=== PATIENT | male | born 1940 | race Caucasian/White ===

== ENCOUNTER → 2019-06-13 10:29 | Outpatient (BNVA) | payer MEDICARE, SELFPAY | PROVIDERS: Family Provider Family Medicine; PCP Family Medicine; Visit Provider Urology | DX: N40.0 Benign prostatic hyperplasia without lower urinary tract symptoms (principal); R35.1 Nocturia | CPT/HCPCS: 81001 ==

== ENCOUNTER 2019-08-25 09:25 | Outpatient (CLI) | payer MEDICARE, SELFPAY ==
--- NOTE | 2019-08-25 09:35 | CT_ITS ---
WS: [id number] CT CHEST TECHNIQUE: Noncontrast CT of the chest with coronal and sagittal reformatted images. CLINICAL INFORMATION: LUNG NODULE COMPARISON: Chest radiograph 02/28/2019 and 06/27/2016 DLP: 1040.[address] scans at [facility] use at least one of these dose optimization techniques: automat ed exposure control; mA and/or kV adjustment per patient size (includes targeted exams where dose is matched to clinical indication); or iterative reconstruction. FINDINGS: Moderate chronic emphysematous changes. No acute pulmonary infiltrates. No consolidation or pleural f luid. Noncontrast subpleural pulmonary nodule superior segment left lower lobe measuring 4 mm. Chroni c appearing fibrosis in the right lower lobe laterally. No other suspicious pulmonary opacities. Mult inodular thyroid with largest nodules in the right lobe measuring 16 mm. Vascular calcification including coronary. Mild aortic calcification. No mediastinal or hilar lymphad enopathy. No axillary lymphadenopathy. Adrenal glands are normal. Normal GE junction. CT/CT chest wo con [id number] IMPRESSION: 1. Noncalcified pulmonary nodule superior segment left lower lobe measuring 4 mm. Recommend 6 month follow-up. 2. No mediastinal or hilar lymphadenopathy. 3. Moderate chronic emphysematous changes. 4. Multinodular thyroid with the largest nodule in the right thyroid gland abdoulaye suring 16 mm. This can be further evaluated with ultrasound
== END 2019-08-25 09:26 | disposition home or self-care (01) ==
LOC: RADWPI 09:27
PROVIDERS: Family Provider Family Medicine; PCP Family Medicine; Visit Provider Family Medicine
DX: R91.8 Other nonspecific abnormal finding of lung field (principal); E04.2 Nontoxic multinodular goiter
CPT/HCPCS: 71250

== ENCOUNTER 2019-09-01 08:36 | Outpatient (CLI) | payer MEDICARE, SELFPAY ==
--- NOTE | 2019-09-01 08:46 | US_ITS ---
WS: [id number] ULTRASOUND THYROID TECHNIQUE: Ultrasound of the thyroid. CLINICAL INFORMATION: THYROID NODULE COMPARISON: None. FINDINGS: Thyroid: Right and left thyroid lobes are normal in size with diffuse heterogeneous echotexture. Mult iple cystic and solid nodules in both thyroid lobes and isthmus described below. Right thyroid lobe: 6.1 cm x 2.4 cm x 2.7 cm Left thyroid lobe: 4.7 cm x 2.4 cm x 2.4 cm. Isthmus: 0.5 mm. Cervical lymphadenopathy: None. US/US thyroid [id number] IMPRESSION: 1. Diffuse heterogeneous thyroid echotexture. 2. Multiple cystic and solid nodules in both thyroid lobes and isthmus 3. Largest solid nodule on the right measuring 2.2 x 1.0 x 2.1 cm with cystic change. 4. Solid hypoechoic nodule right inferior thyroid measuring 1.4 1.2 x 1.4 CM. 5. Dominant left-sided hypoechoic solid nodule measuring 1.9 x 0.9 x 1.2 CCM. 6. Recommend 12 month follow-up and correlation with thyroid function studies.
== END 2019-09-01 08:37 | disposition home or self-care (01) ==
PROVIDERS: PCP Family Medicine; Visit Provider Family Medicine
DX: E04.1 Nontoxic single thyroid nodule (principal)
CPT/HCPCS: 76536

== ENCOUNTER → 2020-07-10 08:47 | Outpatient (BNVA) | payer MEDICARE, SELFPAY | PROVIDERS: PCP Family Medicine; Visit Provider Urology | DX: N40.1 Benign prostatic hyperplasia with lower urinary tract symptoms (principal); R35.1 Nocturia; N39.44 Nocturnal enuresis | CPT/HCPCS: 81003 ==

== ENCOUNTER 2021-02-03 09:06 | Outpatient (CLI) | payer MEDICARE, SELFPAY ==
--- NOTE | 2021-02-03 10:01 | MR_ITS ---
WS: [id number] MRI RIGHT HIP NONCONTRAST TECHNIQUE: Axial T1, axial T2 fat sat, coronal T1, coronal STIR, sagittal T2 fat sat, sagittal T1, an d sagittal T2 fat sat, of both hips. CLINICAL INFORMATION: POSTERIOR PAIN OF RIGHT HIP COMPARISON: None. FINDINGS: Normal bone marrow signal in both hips. No acute fractures. No significant joint effusion. Normal bon e marrow signal in the acetabulum bilaterally. Normal bone marrow signal in the sacrum and lower lumb ar spine. Moderate degenerative narrowing both hips. Proximal femoral shafts are normal in appearance. No iliac or pelvic lymphadenopathy. Benign sclerotic lesion inferior left pubic ramus is unchanged. MR/MR hip RT wo con* [id number] IMPRESSION: 1. Moderate degenerative arthritis both hips with joint space narrowing. 2. No abnormal bone marrow signal in the bilateral femoral heads or acetabulum . 3. Normal visualized sacrum. 4. No other significant findings.
[2021-02-03 11:14] LABS: Blood Urea Nitrogen 26 mg/dL (8-23)
== END 2021-02-03 09:07 | disposition home or self-care (01) ==
PROVIDERS: PCP Family Medicine; Visit Provider Nurse Practitioner Adult Health
DX: M16.0 Bilateral primary osteoarthritis of hip (principal)
CPT/HCPCS: 73721; 82565; 84520

== ENCOUNTER 2021-04-29 10:48 | Outpatient (CLI) | payer MEDICARE, SELFPAY ==
[2021-04-29 11:00] VITALS: BP 163/87; PULSE 74; RESP 17; TEMP 37.5; O2SAT 93; BMI 28.4
[2021-04-29 11:49] VITALS: BP 129/75; PULSE 63; RESP 17; TEMP 36.5; O2SAT 94
[2021-04-29 12:49] VITALS: BP 125/78; PULSE 57; RESP 18; TEMP 36.8; O2SAT 96
== END 2021-04-29 12:49 | disposition home or self-care (01) ==
LOC: OPS 10:52
PROVIDERS: PCP Family Medicine; Visit Provider Nurse Practitioner Family
DX: U07.1 COVID-19 (principal)
CPT/HCPCS: 96365

== ENCOUNTER 2021-05-03 08:43 | Emergency (ER) | payer MEDICARE, SELFPAY ==
[2021-05-03 08:57] VITALS: BP 180/79; PULSE 86; RESP 14; TEMP 37; O2SAT 95; BMI 28.4
--- NOTE | 2021-05-03 09:29 | W.ED.MALEGU ---
Documented by User: B[place] 05/03/21 10:33 HPI - Male Genitourinary General: Chief complaint: Urogenital-Male Stated complaint: trouble urinating Time Seen by Provider: 05/03/21 09:20 History of Present Illness: HPI Narrative: Patient has had difficulty urinating since yesterday. Just dribbling out some. Patient does have a history of prostatic hypertrophy. Patient recently diagnosed with COVID on April 24. Patient complains about fullness and pressure and pain suprapubic area MD Complaint: dysuria Onset (ago): hour(s) Duration: constant and progressively worsening Severity: moderate Severity scale (1-10): 5 Quality: aching Relieving factors: none Exacerbating factors: movement Context: other (COVID positive) Associated symptoms: Deny nausea or vomiting Review of Systems Const: Denies: fever(s), chills or body aches Eyes: Denies: change in vision or blurry vision ENMT: Denies: throat pain or nasal congestion Card: Denies: chest pain or dyspnea on exertion Resp: Denies: dyspnea, productive cough or non-productive cough GI: Denies: abdominal pain, nausea or vomiting : Reports: difficulty urinating Musc: Denies: extremity pain Skin/Breast: Denies: rash Neuro: Denies: headache(s) Psych: Denies: anxiety or depression John/Lymph: Denies: easy bruising PFSH ED PFSH: Medical History BPH NOS w/o ur obs/LUTS Nocturia Nocturnal enuresis Occurs with heavy sleeping on large volume of intake. Rare Family History Father , 68 CAD (coronary artery disease) Mother , 92 No problems noted. Social History Alcohol intake: never Adopted: No Caregiver/support person: No Lives independently: No Household members: spouse Marital status: Current occupational status: retired History of recent travel: No Current gender identity: Male Physical Exam Const: COMMON NORMALS: no acute distress, average body habitus and patient oriented x3 HENMT: COMMON NORMALS: normocephalic HEAD & SCALP: normal to inspection and normocephalic FACE & SINUS: normal facial exam Eye: COMMON NORMALS: conjunctivae normal GENERAL EYE: appearance normal, both eyes and all related structures CONJUNCTIVA: Yes conjunctivae normal Neck/C-Spine: COMMON NORMALS: no JVD Chest: COMMONS NORMALS: normal inspection of the chest Resp: COMMON NORMALS: normal respiratory effort Cardio: COMMON NORMALS: no JVD and regular rate RATE: regular rate GI: INSPECTION: Yes normal to inspection OTHER: Tender suprapubic area Extremity: COMMON NORMALS: normal to inspection and full ROM Neuro: COMMON NORMALS: patient oriented x3 Course Vital Signs: Vital signs: Vital Signs Temperature 98.6 F 05/03/21 08:57 Pulse Rate 62 05/03/21 10:45 Respiratory Rate 19 H 05/03/21 10:45 Blood Pressure 176/76 05/03/21 10:45 Pulse Oximetry 96 05/03/21 10:45 MDM - Male MDM Narrative Medical decision making narrative: Pleasant COVID positive patient that coming with acute urinary retention since last night. UA is positive for WBCs TNTC , hematuria and bacteria. Fernandez was placed and got thousand mils of cloudy yellow urine out. Fernandez left in place. Patient encouraged follow-up primary care provider between Wednesday and Wednesday. Take antibiotics as prescribed. Lab Data Labs: Lab Results 05/03/21 09:30 Urine Color Straw (Yellow) Urine Appearance Cloudy (CLEAR) Urine pH 5 (5-7) Ur Specific [place] 1.010 (1.005-1.030) Urine Protein Neg (Negative) Urine Glucose (UA) Norm (Normal) Urine Ketones Negative (Negative) Urine Blood 3+ H (Negative) Urine Nitrate Negative (Negative) Urine Bilirubin Neg (Negative) Urine Urobilinogen Norm mg/dL mg/dL (Negative) Ur Leukocyte Esterase 2+ H (Negative) Urine RBC 5-10 /hpf H /hpf (0-2) Urine WBC Too numerous to cnt /hpf H /hpf (0-5) Ur Squamous Epith Cells None /hpf /hpf (0-5) Amorphous Sediment Not Reportable Urine Bacteria 1+ /hpf H /hpf (NONE) Discharge Plan Discharge Patient Disposition: Home Clinical Impression: Acute lower urinary tract infection, Acute urinary retention Condition: Stable Prescriptions: New fosfomycin tromethamine 3 gram packet 1 packet PO ONCE Qty: 1 0RF No Action vitamin B complex [B Complex-Vitamin B12] Tablet 1 tab PO DAILY 0RF cholecalciferol (vitamin D3) 125 mcg (5,000 unit) capsule 125 mcg PO DAILY 0RF lovastatin 40 mg tablet 40 mg PO DAILY 0RF ascorbic acid (vitamin C) 500 mg capsule PO 0RF ofloxacin 0.3 % drops 1 drp ophthalmic (eye) QID 0RF Cortisporin-TC 3.3-3-10-0.5 mg/mL drops,suspension 4 drp otic (ear) TID 7 Days Qty: 10 0RF tamsulosin 0.4 mg capsule 0.4 mg PO DAILY Qty: 90 3RF Discharge Orders: Discharge ED (Routine); Ordered 05/03/21 Ordered By: Sawyer Buenrostro Referrals: Zachery Lopez MD [Primary Care Provider] - Discharge Diet: Usual diet Discharge Activity: Increase activity as tolerated Patient Instructions: Urinary Retention in Men (ED), Urinary Tract Infection in Men (DC), Fernandez Catheter Placement and Care (ED) Activity Restrictions/Additional Instructions: Follow-up with medical provider as directed. Take medications as prescribed. Return to the ER or your medical provider if condition worsens. Please read and understand discharge instructions. If any questions ask please. Make sure that you stay away from any cough and cold medicines. Take the antibiotic as prescribed should be 1 dose 1 day antibiotic. Leave Fernandez until seen by primary care provider and I suggest this before Wednesday. Also double your Flomax daily. To 1 tablet twice a day. Coding Level of Care Code ED Journalism Internship for Chg Fwd Exam Comprehensive Documented by User: Ruben Manning MD 05/07/21 22:30 HPI - Male Genitourinary General: Chief complaint: Urogenital-Male Stated complaint: trouble urinating Time Seen by Provider: 05/03/21 09:20 PFS ED PFSH: Medical History BPH NOS w/o ur obs/LUTS Nocturia Nocturnal enuresis Occurs with heavy sleeping on large volume of intake. Rare Family History Father , 68 CAD (coronary artery disease) Mother , 92 No problems noted. Social History Alcohol intake: never Adopted: No Caregiver/support person: No Lives independently: No Household members: spouse Marital status: Current occupational status: retired History of recent travel: No Current gender identity: Male Course Vital Signs: Vital signs: Vital Signs Temperature 98.6 F 05/03/21 08:57 Pulse Rate 62 05/03/21 10:45 Respiratory Rate 19 H 05/03/21 10:45 Blood Pressure 176/76 05/03/21 10:45 Pulse Oximetry 96 05/03/21 10:45 MDM - Male MDM Narrative Medical decision making narrative: I discussed this case with Sawyer Buenrostro NP. I reviewed documentation and laboratory studies. Potentially due to system error or recent update with failed integration this note appears blank however I have reviewed the recent note separately within the system as written by Sawyer Buenrostro NP. Ruben Manning MD Emergency Medicine Lab Data Labs: Lab Results 05/03/21 09:30 Urine Color Straw (Yellow) Urine Appearance Cloudy (CLEAR) Urine pH 5 (5-7) Ur Specific [place] 1.010 (1.005-1.030) Urine Protein Neg (Negative) Urine Glucose (UA) Norm (Normal) Urine Ketones Negative (Negative) Urine Blood 3+ H (Negative) Urine Nitrate Negative (Negative) Urine Bilirubin Neg (Negative) Urine Urobilinogen Norm mg/dL mg/dL (Negative) Ur Leukocyte Esterase 2+ H (Negative) Urine RBC 5-10 /hpf H /hpf (0-2) Urine WBC Too numerous to cnt /hpf H /hpf (0-5) Ur Squamous Epith Cells None /hpf /hpf (0-5) Amorphous Sediment Not Reportable Urine Bacteria 1+ /hpf H /hpf (NONE) Discharge Plan Discharge Patient Disposition: Home Clinical Impression: Acute lower urinary tract infection, Acute urinary retention Condition: Stable Prescriptions: New fosfomycin tromethamine 3 gram packet 1 packet PO ONCE Qty: 1 0RF No Action vitamin B complex [B Complex-Vitamin B12] Tablet 1 tab PO DAILY 0RF cholecalciferol (vitamin D3) 125 mcg (5,000 unit) capsule 125 mcg PO DAILY 0RF lovastatin 40 mg tablet 40 mg PO DAILY 0RF ascorbic acid (vitamin C) 500 mg capsule PO 0RF ofloxacin 0.3 % drops 1 drp ophthalmic (eye) QID 0RF Cortisporin-TC 3.3-3-10-0.5 mg/mL drops,suspension 4 drp otic (ear) TID 7 Days Qty: 10 0RF tamsulosin 0.4 mg capsule 0.4 mg PO DAILY Qty: 90 3RF Discharge Orders: Discharge ED (Routine); Ordered 05/03/21 Ordered By: Sawyer Buenrostro Referrals: Zachery Lopez MD [Primary Care Provider] - Discharge Diet: Usual diet Discharge Activity: Increase activity as tolerated Patient Instructions: Urinary Retention in Men (ED), Urinary Tract Infection in Men (DC), Fernandez Catheter Placement and Care (ED) Activity Restrictions/Additional Instructions: Follow-up with medical provider as directed. Take medications as prescribed. Return to the ER or your medical provider if condition worsens. Please read and understand discharge instructions. If any questions ask please. Make sure that you stay away from any cough and cold medicines. Take the antibiotic as prescribed should be 1 dose 1 day antibiotic. Leave Fernandez until seen by primary care provider and I suggest this before Wednesday. Also double your Flomax daily. To 1 tablet twice a day. Coding Level of Care Code ED Journalism Internship for Andre Fwdustin Exam Comprehensive
[2021-05-03 09:52] LABS: Add Urine Microscopic? YES; Bacteria Urine 1+ /hpf; Bilirubin Urine Neg (Negative); Blood Urine 3+ (Negative); Glucose Urine UA Norm (Normal); Ketones Urine Negative (Negative); Leukocyte Esterase Urine 2+ (Negative); Nitrate Urine Negative (Negative); Protein Urine Neg (Negative); Urine Appearance Cloudy (CLEAR); Urine Color Straw (Yellow); Urobilinogen Urine Norm (Negative); WBC Urine TOO NUMEROUS TO CNT /hpf (0-5); pH Urine 5 (5-7)
[2021-05-03 09:53] LABS: Add Urine Culture? Yes
[2021-05-03] MEDS: cephALEXin 500 mg Capsule PO (10:44)
[2021-05-03 10:45] VITALS: BP 176/76; PULSE 62; RESP 19; O2SAT 96
== END 2021-05-03 10:48 | disposition home or self-care (01) ==
PROVIDERS: Emergency Provider Nurse Practitioner Family; PCP Family Medicine
DX: N39.0 Urinary tract infection, site not specified (principal); R33.9 Retention of urine, unspecified
CPT/HCPCS: 51702; 81001; 87077; 87086; 87186; 99283

== ENCOUNTER → 2021-07-10 08:32 | Outpatient (BNVA) | payer MEDICARE, SELFPAY | PROVIDERS: PCP Family Medicine; Visit Provider Urology | DX: N40.0 Benign prostatic hyperplasia without lower urinary tract symptoms (principal) | CPT/HCPCS: 81003 ==

== ENCOUNTER → 2021-09-02 09:00 | Outpatient (BNVA) | payer MEDICARE, SELFPAY | PROVIDERS: PCP Family Medicine; Visit Provider Family Medicine | DX: E04.1 Nontoxic single thyroid nodule (principal); I48.91 Unspecified atrial fibrillation; G47.33 Obstructive sleep apnea (adult) (pediatric); E78.5 Hyperlipidemia, unspecified | CPT/HCPCS: 80053; 80061; 84443; 85025 ==

== ENCOUNTER → 2021-09-04 07:42 | Outpatient (BNVA) | payer MEDICARE, SELFPAY | PROVIDERS: PCP Family Medicine; Visit Provider Family Medicine | DX: E04.1 Nontoxic single thyroid nodule (principal); I48.91 Unspecified atrial fibrillation; G47.33 Obstructive sleep apnea (adult) (pediatric); E78.5 Hyperlipidemia, unspecified | CPT/HCPCS: 80053; 80061; 84443; 85025 ==

== ENCOUNTER → 2022-02-26 07:44 | Outpatient (BNVA) | payer MEDICARE, SELFPAY | PROVIDERS: PCP Family Medicine; Visit Provider Family Medicine | DX: E04.1 Nontoxic single thyroid nodule (principal); E78.5 Hyperlipidemia, unspecified; G47.33 Obstructive sleep apnea (adult) (pediatric); I48.91 Unspecified atrial fibrillation; Z99.89 Dependence on other enabling machines and devices; N40.0 Benign prostatic hyperplasia without lower urinary tract symptoms; R35.1 Nocturia | CPT/HCPCS: 80053; 80061; 84153 ==

== ENCOUNTER → 2022-03-26 08:29 | Outpatient (BNVA) | payer MEDICARE, SELFPAY | PROVIDERS: PCP Family Medicine; Visit Provider Clinical Nurse Specialist Adult Health | DX: B34.9 Viral infection, unspecified (principal); J10.1 Influenza due to other identified influenza virus with other respiratory manifestations | CPT/HCPCS: 87400; 87426 ==

== ENCOUNTER → 2022-07-08 14:00 | Outpatient (BNVA) | payer MEDICARE, SELFPAY | PROVIDERS: PCP Family Medicine; Visit Provider Urology | DX: N40.0 Benign prostatic hyperplasia without lower urinary tract symptoms (principal); R35.1 Nocturia; Z12.5 Encounter for screening for malignant neoplasm of prostate | CPT/HCPCS: 51741; 51798; 81003; 99213 ==

== ENCOUNTER → 2023-05-24 09:25 | Outpatient (BNVA) | payer MEDICARE, SELFPAY | PROVIDERS: PCP Family Medicine; Visit Provider Specialist | DX: M25.552 Pain in left hip (principal); M16.0 Bilateral primary osteoarthritis of hip | CPT/HCPCS: 73502; 99204 ==

== ENCOUNTER 2023-06-07 07:13 | Outpatient (CLI) | payer MEDICARE, SELFPAY ==
--- NOTE | 2023-06-07 08:00 | NMR_ITS ---
PROCEDURE INFORMATION: Exam: LA Bone and/or Joint, 3 Phase Exam date and time: 06/07/2023 8:00 AM Age: 82 years old Clinical indication: Bone pain; Prior surgery; Surgery date: 6+ months; Patient HX: Left hip pain history of left knee replacement, sclerotic lesion in the left ischial tuberosity TECHNIQUE: Imaging protocol: Nuclear 3 phase bone scan was obtained. Views: Frontal and Radiopharmaceutical: 24.4 mCi Tc99m HDP @ 0730. Time of imaging post radiopharmaceutical administration: Posterior. Blood flow, blood pool, and static images were obtained. COMPARISON: Routine images of the left hip from 05/14/2023. FINDINGS: Bones/joints: The bone scan shows normal distribution of radiopharmaceutical throughout the visualized osseous structures. The heterogeneous expansile lesion in the left inferior pubic bone shows no increased activity. Blood flow, blood pool, and static images are are essentially normal. Degenerative changes of the left hip yield increased uptake at the weight-bearing aspect of the acetabulum and within the adjacent femur. Typical defect from left knee replacement. Soft tissues: Unremarkable. Kidneys: Two kidneys are present and there is no hydronephrosis. NM/NM bone 3 phase [id number] IMPRESSION: No suspicious abnormality. Degenerative changes of the left hip, left knee replacement.
== END 2023-06-07 07:14 | disposition home or self-care (01) ==
LOC: RAD 07:14
PROVIDERS: PCP Family Medicine; Visit Provider Specialist
DX: M16.12 Unilateral primary osteoarthritis, left hip (principal); Z96.652 Presence of left artificial knee joint
CPT/HCPCS: 78315; A9561

== ENCOUNTER 2023-06-14 14:43 | Outpatient (CLI) | payer MEDICARE, SELFPAY ==
--- NOTE | 2023-06-14 15:00 | CT_ITS ---
WS: [id number] NONCONTRAST CT LEFT HIP TECHNIQUE: Noncontrast CT LEFT hip with coronal and sagittal reformatted images. CLINICAL INFORMATION: left hip pain COMPARISON: Radiograph 05/24/2023 DLP: 425.[address] scans at [facility] use at least one of these dose optimization techniques: automated e xposure control; mA and/or kV adjustment per patient size (includes targeted exams where dose is matc hed to clinical indication); or iterative reconstruction. FINDINGS: Sclerotic changes in the LEFT inferior pubic ramus unchanged from the CT 2008. Moderate to advanced d egenerative arthritis LEFT hip with near complete loss of the anterosuperior joint space. Subchondral sclerosis in the adjacent acetabulum with subchondral cystic changes. Hypertrophic changes about the acetabulum. Femoral neck is normal in appearance. No evidence of avascular necrosis or subchondral c ollapse. Vascular calcification. Small LEFT joint effusion. Partially visualized enlarged prostate with eviden ce of bladder outlet obstruction. Prostate measures 4.2 x 4.4 cm. IMPRESSION: 1. Sclerotic lesion in the LEFT inferior pubic ramus is unchanged since the prior CT in 2008. 2. Moderate to advanced degenerative arthritis LEFT hip with near [id number] articulation in the a nteriorsuperior joint compartment with subchondral cystic change and sclerosis. Hypertrophic changes along the joint line. 3. No evidence of avascular necrosis or subchondral collapse. No acute fractures. 4. Small LEFT joint effusion. 5. Partially visualized enlarged prostate. Recommend correlation PSA. 6. No other acute findings.
== END 2023-06-14 14:44 | disposition home or self-care (01) ==
LOC: RAD 14:45
PROVIDERS: PCP Family Medicine; Visit Provider Specialist
DX: M16.12 Unilateral primary osteoarthritis, left hip (principal); M89.9 Disorder of bone, unspecified
CPT/HCPCS: 73700

== ENCOUNTER → 2023-06-21 14:06 | Outpatient (BNVA) | payer MEDICARE, SELFPAY | PROVIDERS: PCP Family Medicine; Visit Provider Specialist | DX: Z01.818 Encounter for other preprocedural examination (principal); Z79.899 Other long term (current) drug therapy; M16.0 Bilateral primary osteoarthritis of hip; M25.552 Pain in left hip | CPT/HCPCS: 80053; 81003; 85025; 99214 ==

== ENCOUNTER 2023-07-08 16:41 | Observation (INO) | payer MEDICARE, SELFPAY ==
[2023-07-08] VITALS (13 sets, daily range): BP systolic 89–132; BP diastolic 58–89; PULSE 68–105; RESP 14–20; TEMP 35.7–36.7; O2SAT 95–100; BMI 26.1
[2023-07-08] MEDS: acetaminophen 1,000 MG/100 ML PIGGYBACK 400 MG IV ×2 (13:02→17:53)
[2023-07-08] MEDS: sodium chloride 0.9% 1,000 ML 30 ML IV (13:02)
[2023-07-08] MEDS: CELEcoxib 200 mg Capsule 400 MG PO (13:03)
[2023-07-08] MEDS: gabapentin 300 mg Capsule PO (13:03)
--- NOTE | 2023-07-08 13:09 | ANES.PREANE2 ---
Pre-Anesthetic Assessment Height/Weight: Height 1.96 m Weight 99.79 kg Temp Pulse Resp BP Pulse Ox O2 Del Method 98.1 F 95 17 127/81 99 Room Air 07/08/23 12:40 07/08/23 12:40 07/08/23 12:40 07/08/23 12:40 07/08/23 12:40 07/08/23 12:40 Operation Date: 07/08/23 13:50 Proposed Procedures p Total Hip Arthroplasty(Left) - Venus Santiago MD Familial anesthetic complications: None Was Beta Audra taken within 24 hours: N/A Was Clonidine taken within 24 hours: N/A Last intake: Intake Last Liquid Date 07/07/23 Last Liquid Time 18:30 Last Solid Date 07/07/23 Last Solid Time 18:30 Social No alcohol and No tobacco Exam alert, oriented x 3, clear to auscultation bilaterally and regular rate & rhythm Airway Mallampati: Class III Dentition: full Pulmonary Sleep Apnea CV/HEM Atrial Fibrillation (last took eliquis wednesday (today is )) Metabolic Hyperlipidemia Anesthetic Plan ASA status: 3 Anesthesia: Regional (specify below) Risk of > 500 ml blood loss (7ml/kg in children): No Medications/Allergies Home Medications Medication Instructions Recorded Confirmed Last Taken Type tamsulosin 0.4 mg capsule 0.4 mg PO BID #180 caps 07/08/22 07/07/23 07/07/23 Rx apixaban 5 mg tablet (Eliquis) 5 mg PO BID 06/21/23 07/07/23 07/05/23 History dutasteride 0.5 mg capsule 0.5 mg PO DAILY 06/21/23 07/07/23 07/07/23 History metoprolol succinate 50 mg 50 mg PO DAILY 06/21/23 07/07/23 07/08/23 08:00 History tablet,extended release 24 hr lovastatin 40 mg tablet See Rx Instructions .Route .COMPLEX 07/08/23 07/07/23 07/07/23 History Allergies Allergy/AdvReac Type Severity Reaction Status Date / Time Penicillins Allergy NA Verified 07/01/23 09:21 Current Medications Generic Name Dose Route Start Last Admin Trade Name Freq PRN Reason Stop Dose Admin Sodium Chloride 1,000 mls @ 30 mls/hr 07/08/23 12:30 07/08/23 13:02 Sodium Chloride 0.9% IV 07/09/23 12:29 30 mls/hr .Q24H WIL Administration PFSH Anesthesia Medical History Thyroid nodule Atrial fibrillation LAKHWINDER on CPAP Hyperlipidemia Nocturnal enuresis Occurs with heavy sleeping on large volume of intake. Rare Nocturia BPH NOS w/o ur obs/LUTS Surgical History S/P skin cancer resection H/O cardiac radiofrequency ablation Family History Father , 68 CAD (coronary artery disease) Mother , 92 No problems noted. Social History Smoking and tobacco/nicotine status: never used tobacco/nicotine Alcohol intake: current Substance/Drug Use: never Adopted: No Caregiver/support person: No Lives independently: No Household members: spouse Marital status: Current occupational status: retired Current gender identity: Male Data Anesthesia Cardiac Studies: No Data to Display
--- NOTE | 2023-07-08 13:19 | P.HPUD_ITS ---
Surgery/Procedure H&P Update DATE OF PROCEDURE: July 08, 2023 DATE H&P PERFORMED: 07/01/23 H&P UPDATE INFORMATION: I have reviewed H&P completed within last 30 days, I have examined patient prior to procedure, No changes to prior documentation and H&P is in [facility] EMR on date indicated PLANNED PROCEDURE: Operation Date: 07/08/23 13:50 Proposed Procedures p Total Hip Arthroplasty(Left) - Venus Santiago MD Related Problem List Diagnoses (1) Primary osteoarthritis of left hip:
[2023-07-08] MEDS: ceFAZolin 2,000 MG in sodium chloride 0.9% (plus) 50 ML 100 MG IV ×2 (13:51→21:43)
[2023-07-08] MEDS: tranexamic acid 1,000 mg/10mL SDV 1000 MG IV (14:36)
[2023-07-08] MEDS: vancomycin 1,000 MG SDV 1000 MG IRRIGATION (14:44)
[2023-07-08] MEDS: vancomycin 1,000 MG SDV 1000 MG XX (14:45)
--- NOTE | 2023-07-08 16:36 | PM.OP ---
Operative Report Date of procedure: July 08, 2023 Pre-op diagnosis: Severe degenerative osteoarthritis left hip Post-op diagnosis: Severe degenerative osteoarthritis left hip Post-op findings: Severe degenerative osteoarthritis of the left hip with large osteophytes and calcified labrum Procedure done: Left total hip arthroplasty Implants: The Kerri total hip system with a size 58 mm by F alpha code Trident II Tritanium acetabular shell with an MDM liner size 46 mm inner diameter by F alpha code.? A size 11 Accolade II 127? neck angle hip stem with a size 28 mm x +0 mm femoral head and a restorationist MDM X3 insert size 28 mm x 46F Specimens removed/disposition: Femoral head, disposed of Surgeon: Venus Santiago MD Fur Dressing Supervisor: Ofelia Baptiste, nurse practitioner, who services were required for positioning, exposure, manipulation, retraction, and closure Anesthesia: Spinal (With MAC, ASA 3) Estimated blood loss (mL): 75 IV fluids (mL): 1,000 Urine output (mL): 100 Complications: None Findings: Severe degenerative osteoarthritis with large osteophytes and calcified labrum. Additionally, the patient was stable at 90 degrees of flexion with 70 degrees of internal rotation and 20 degrees of adduction. He was stable to toe hang and external rotation. Condition: stable Disposition: PACU (Then to floor for postoperative rehabilitation and pain management) Brief History: This 82-year-old gentleman presented to the office with complaints of left hip pain which impacted his activities of daily living. He had difficulty using the muscles in his left leg as well as bending over and sleeping on his left side. He took Tylenol without relief. CT scan demonstrated a stable lesion in his inferior pubis. X-rays demonstrated end-stage degenerative osteoarthritis. After discussion in the office, questions were answered and consents were signed. The patient wished to proceed with left total hip arthroplasty. Procedure: Patient was brought to the operating theater.? He was transferred to the operating room table and subsequently administered a spinal anesthesia with MAC, ASA 3.? Following administration of adequate anesthesia, the patient was placed in full lateral position and held in position with a pegboard.? The patient's left lower extremity was then prepped and draped in usual fashion utilizing DuraPrep.? It was draped free. Following prepping and draping, a surgical pause was performed.? At the time of surgical pause, we identified the site and side of surgery.? We also identified the patient and preoperative surgical markings.?The patient's operative leg was compared to the opposite leg as a length comparison.? Confirmation was made of equipment availability.? Additionally, the patient's preoperative IV antibiotic, Ancef 2 g, and TXA administration was confirmed as well.? X-rays were also reviewed. Following the surgical pause, an incision was made centering over the patient's greater trochanter continuing proximally and distally as necessary to allow access to the hip joint.? Dissection continued through skin and soft tissues using a scalpel, and hemostasis was obtained using electrocautery. The tensor fascia rickey was identified and incised longitudinally.? Sciatic nerve was identified and protected throughout the surgical procedure.? A Charnley U retractor was placed after the tensor fascia rickey had been incised longitudinally, and the sciatic nerve had been identified.? The hip was internally rotated, and the piriformis muscle was identified and tagged. Piriformis muscle along with the remaining short external rotators were then incised from the posterior aspect of the hip joint.? These were retracted posteriorly.? The capsule was entered in a T-type fashion with the edges being tagged, and subsequently the hip was dislocated.? The labrum was noted to be calcified. The labrum was excised with further excision accomplished once the femoral head was removed.? Following hip dislocation, a femoral neck osteotomy was accomplished in the appropriate position.? The head was measured, but it was quite deformed.? We then evaluated the acetabulum. The femur was retracted anteriorly.? Soft tissues were retracted, and the labrum was removed.? Labrum was noted to be quite large and deformed. We then began reaming.? Once the femoral head was removed, there was noted to be significant loss of cartilage over the head with the previously noted deformity and cartilage loss within the acetabulum.? We reamed the acetabulum to a size 57 to allow for a size 58 acetabular shell. The acetabulum was impacted into position.? The MDM liner was then impacted into position with care being taken to assure it seated appropriately. It was noted that the acetabulum matched the bony anatomy after removal of anterior and posterior osteophytes.? The cup was noted to seat nicely and had good fixation upon impact. Attention was directed to the proximal femur.? The proximal femur was lifted out of the wound.? A canal finder was passed after the box chisel.? The reamer was used to lateralize.? We then began broaching. We broached sequentially and had excellent fit and fill with the size 11 broach. ?Trial reduction was initially accomplished with a size [address] With a size11 broach in position, a trial reduction was accomplished with a +0 mm femoral head. The +0 mm offset femoral head gave us the stability noted above, and it was noted that lengths appeared restored and appropriate. With the final construct as noted, we had the above-noted stabilities and appropriate leg length. Therefore, trial components were removed after the hip was dislocated.? The size 11 Accolade II 127? neck angle stem was impacted into position without difficulty and onto this was placed a +0 mm x 28 mm femoral head which had been assembled into the MDM insert size 46F.? With a +0 mm femoral head, we had the above-noted stability.? The stem was noted to seat nicely prior to placement of the femoral head.? The wound was copiously irrigated with 20 mL of Betadine and 500 mL of normal saline mixed together.? Subsequently, we suctioned this out and irrigated the wound copiously with lactated Ringer's.? At this time, with all components in appropriate position, the hip was reduced.? Following reduction of the prosthesis once again, we confirmed the stability of the hip.? Leg lengths were also felt to be satisfactory. Being satisfied with the prosthesis, attention was directed to closure.? Closure was accomplished with 0 Vicryl in the capsular tissues.? Piriformis was reattached with 0 Vicryl as well.? Tensor fascia rickey was closed with 0 Vicryl in an interrupted fashion.? The subcutaneous tissues were closed with combination of 0 Vicryl and 2-0 Monocryl.? Vancomycin powder and a Gelfoam thrombin mixture was placed into the wound as well.? The skin was closed with a running 3-0 Monocryl followed by Dermabond John and La. The patient was placed in an abduction pillow.? Patient was transferred off the operative bed and was brought to the recovery room in a satisfactory condition. He will be discharged to the floor for postoperative rehabilitation and pain management. There were no complications and no specimens. Related Problem List Diagnoses (1) Primary osteoarthritis of left hip:
--- NOTE | 2023-07-08 16:37 | XRR_ITS ---
PROCEDURE INFORMATION: Exam: XR Pelvis Exam date and time: 07/08/2023 3:44 PM Age: 82 years old Clinical indication: Device placement; Other: Total hip replacement; Additional info: S/P purnima, low ap pelvis TECHNIQUE: Imaging protocol: Radiologic exam of the pelvis. Views: 1 or 2 view. COMPARISON: CR XR hip LT 2-3V wo/w pel* [id number] 05/24/2023 9:26 AM FINDINGS: Bones/joints: Right hip hemiarthroplasty placement since 06/14/2023. Expected postsurgical appearance. No periprosthetic fracture. No other fracture identified. Mild degenerative right hip arthrosis with cam morphology of the femoral head and neck junction. Sclerotic expansion of the left ischial bone is unchanged as far back as 12/19/2020 Soft tissues: Small amount of air within the left hip joint and surrounding soft tissues as expected. XR/XR pelvis 1-2V* [id number] IMPRESSION: Expected postsurgical appearance status post left hip hemiarthroplasty.
--- NOTE | 2023-07-08 16:55 | ANE.PACU2 ---
Inpatient post-anesthesia follow up: Airway intact: Yes Vital signs: Temperature 98.2 F Pulse Rate 84 Respiratory Rate 16 Blood Pressure 106/63 Pulse Oximetry 95 Oxygen Delivery Me thod Room Air Oxygen Flow Rate 3 Fraction of Inspir ed Oxygen 21 Hydration adequate: Yes Nausea and vomiting: No Pain level: 1 Mental status: Baseline
[2023-07-08] MEDS: chlorhexidine gluconate 0.12% Btl 473 mL 30 ML MUCOUS MEM ×2 (17:54→20:19)
[2023-07-08] MEDS: iron polysaccharide complex 150 mg Capsule PO (18:01)
[2023-07-08] MEDS: apixaban 5 mg Tablet PO (18:01)
[2023-07-08] MEDS: sennosides-docusate Tablet 2 TAB PO (18:01)
[2023-07-08] MEDS: tamsulosin 0.4 mg Capsule 0.400000000000000022 MG PO (18:01)
[2023-07-08] MEDS: CELEcoxib 200 mg Capsule PO (18:02)
[2023-07-08] MEDS: mupirocin oint 22 gm 1 APPLIC NASAL (18:02)
[2023-07-08] MEDS: oxyCODONE 5 mg IR Tab/Cap PO ×2 (18:50→23:50)
[2023-07-08] MEDS: tranexamic acid 1,000 MG/100 ML PREMIX 600 MG IV (20:14)
[2023-07-08] MEDS: atorvastatin 40 mg Tablet PO (20:18)
[2023-07-09] VITALS (7 sets, daily range): BP systolic 74–109; BP diastolic 51–66; PULSE 84–93; RESP 15–17; TEMP 36.6–36.8; O2SAT 93–95
[2023-07-09] MEDS: acetaminophen 1,000 MG/100 ML PIGGYBACK 400 MG IV ×2 (00:18→09:42)
[2023-07-09] MEDS: ceFAZolin 2,000 MG in sodium chloride 0.9% (plus) 50 ML 100 MG IV ×2 (05:15→14:58)
[2023-07-09] MEDS: CELEcoxib 200 mg Capsule PO (05:15)
[2023-07-09 05:57] LABS: Basophils % 0.2 %; Eosinophils # 0.1 10^3/uL (0.0-0.8); Eosinophils % 1.7 %; Hematocrit 41.1 % (37-53); Lymphocytes # 0.7 10^3/uL (0.8-4.8); Lymphocytes % 8.1 %; Mean Corpuscular HGB Conc 32.8 g/dL (30-55); Mean Corpuscular Hemoglobin 31.2 pg (27-33); Mean Corpuscular Volume 94.9 fl (82-101); Mean Platelet Volume 9.7 fL (7.4-10.4); Monocytes # 0.8 10^3/uL (0.2-0.9); Neutrophils # 6.78 10^3/uL (1.8-7.7); Neutrophils % 80.4 %; Nucleated Red Blood Cells % 0 %; Platelet Count 168 10^3/cmm (157-399); Red Blood Count 4.33 10^6/uL (3.85-5.65); Red Cell Distribution Width 13.3 % (12.1-15.1); White Blood Count 8.43 10^3/uL (3.29-11.43)
[2023-07-09] MEDS: oxyCODONE 5 mg IR Tab/Cap PO ×2 (06:05→14:58)
[2023-07-09 06:17] LABS: Anion Gap 11.8 (5-19); Blood Urea Nitrogen 29 mg/dL (8-23); Calcium 8.5 mg/dL (8.5-10.5); Carbon Dioxide 27 mmol/L (22-29); Chloride 105 mmol/L (98-107); Creatinine Clr Calc Pharmacy 62.2007; Glucose 120 mg/dL (65-115); Osmolality Calculated 295 mOsm/kg (285-295); Potassium 4.8 mmol/L (3.5-5.1); Sodium 139 mmol/L (136-145)
[2023-07-09] MEDS: mupirocin oint 22 gm 1 APPLIC NASAL (08:49)
[2023-07-09] MEDS: dutasteride 0.5 mg Capsule PO (08:49)
[2023-07-09] MEDS: apixaban 5 mg Tablet PO (08:49)
[2023-07-09] MEDS: tamsulosin 0.4 mg Capsule 0.400000000000000022 MG PO (08:49)
[2023-07-09] MEDS: iron polysaccharide complex 150 mg Capsule PO (08:49)
[2023-07-09] MEDS: sennosides-docusate Tablet 2 TAB PO (08:49)
[2023-07-09] MEDS: chlorhexidine gluconate 0.12% Btl 473 mL 30 ML MUCOUS MEM ×2 (08:50→12:42)
[2023-07-09] MEDS: ondansetron 2 mg/ML SDV 2 mL 4 MG IVP (09:07)
[2023-07-09] MEDS: sodium chloride 0.9% 500 ML 999 ML IV (09:07)
--- NOTE | 2023-07-09 09:26 | P.CONIM_ITS ---
Providers/Reason For Consult 2 Consulting Physician/Specialty*: Mitesh Vallejo MD, hospitalist Reason for Consult*: Low blood pressure Requesting Physician: Dr. Santiago Attending Physician: Venus Santiago MD Primary Care Provider: Jonh Garcia MD History of Present Illness History of Present Illness Kenan He is a 82 year old male who underwent ORIF of his left hip yesterday, 328 without complication. This morning, blood pressure was in the mid 70s and he felt a little dizzy. Orthopedics was consulted and is appropriately giving a liter of fluid bolus and his metoprolol has been held. I have been asked to see him in consultation. He reports although he was dizzy earlier he is feeling much better now. He is hungry and wanting to eat. He denies any chest discomfort or shortness of breath. EBL yesterday was 75 cc. Hemoglobin dropped from baseline of 15-13.5. He has not developed any significant hematoma in his hip. Review of Systems 2 General: Reports: 10 or more systems reviewed and unremarkable except in HPI and below Card: Denies: chest pain Resp: Denies: dyspnea GI: Denies: nausea or vomiting Medications/Allergies Home Medications Medication Instructions Recorded Confirmed Last Taken Type tamsulosin 0.4 mg capsule 0.4 mg PO BID #180 caps 07/08/22 07/07/23 07/07/23 Rx apixaban 5 mg tablet (Eliquis) 5 mg PO BID 06/21/23 07/07/23 07/05/23 History dutasteride 0.5 mg capsule 0.5 mg PO DAILY 06/21/23 07/07/23 07/07/23 History metoprolol succinate 50 mg 50 mg PO DAILY 06/21/23 07/07/23 07/08/23 08:00 History tablet,extended release 24 hr lovastatin 40 mg tablet See Rx Instructions .Route .COMPLEX 07/08/23 07/07/23 07/07/23 History Allergies Allergy/AdvReac Type Severity Reaction Status Date / Time Penicillins Allergy NA Verified 07/01/23 09:21 Current Medications Generic Name Dose Route Start Last Admin Trade Name Freq PRN Reason Stop Dose Admin Apixaban 5 mg 07/08/23 18:00 07/09/23 08:49 Apixaban 5 Mg Tablet PO 5 mg BID WIL Administration Atorvastatin Calcium 40 mg 07/08/23:00 07/08/23 20:18 Atorvastatin 40 Mg Tablet PO 40 mg BEDTIME WIL Administration Celecoxib 200 mg 07/08/23 17:07 07/09/23 05:15 Celecoxib 200 Mg Capsule PO 200 mg Q12H WIL Administration Chlorhexidine Gluconate 30 ml 07/08/23 17:07 07/09/23 08:50 Chlorhexidine Gluconate 0.12% Btl 473 Ml MUCOUS MEM 30 ml QID WIL Administration Dutasteride 0.5 mg 07/09/23 09:00 07/09/23 08:49 Dutasteride 0.5 Mg Capsule PO 0.5 mg DAILY WIL Administration Cefazolin Sodium 2,000 mg/ 50 mls @ 100 mls/hr 07/08/23 22:00 07/09/23 06:07 Sodium Chloride IV 07/09/23 14:29 Infused Q8H WIL Infusion Protocol Sodium Chloride 500 mls @ 999 mls/hr 07/09/23 09:02 07/09/23 09:07 Sodium Chloride 0.9% IV 07/09/23 09:32 999 mls/hr .Q31M ONE Administration Metoprolol Succinate 50 mg 07/09/23 09:00 07/09/23 09:06 Metoprolol Succinate Er (24 Hr) 50 Mg Tablet PO Not Given DAILY [facility] Mupirocin 1 applic 07/08/23 18:00 07/09/23 08:49 Mupirocin Oint 22 Gm NASAL 07/13/23 17:59 1 applic BID WIL Administration Ondansetron HCl 4 mg 07/09/23 09:03 07/09/23 09:07 Ondansetron 2 Mg/Ml Sdv 2 Ml IVP 4 mg Q6H PRN Administration NAUSEA AND VOMITING Oxycodone HCl 5 - 10 mg 07/08/23 17:07 07/09/23 06:05 Oxycodone 5 Mg Ir Tab/Cap PO 5 mg Q4H PRN Administration MODERATE PAIN Polysaccharide Iron Complex 150 mg 07/08/23 18:00 07/09/23 08:49 Iron Polysaccharide Complex 150 Mg Capsule PO 150 mg BIDWM WIL Administration Senna/Docusate Sodium 2 tab 07/08/23 18:00 07/09/23 08:49 Sennosides-Docusate Tablet PO 2 tab BID WIL Administration Tamsulosin HCl 0.4 mg 07/08/23 18:00 07/09/23 08:49 Tamsulosin 0.4 Mg Capsule PO 0.4 mg BID WIL Administration PFSH Acute 2 PFSH: Medical History Thyroid nodule Atrial fibrillation LAKHWINDER on CPAP Hyperlipidemia Nocturnal enuresis Occurs with heavy sleeping on large volume of intake. Rare Nocturia BPH NOS w/o ur obs/LUTS Surgical History S/P skin cancer resection H/O cardiac radiofrequency ablation Family History Father , 68 CAD (coronary artery disease) Mother , 92 No problems noted. Social History Smoking and tobacco/nicotine status: never used tobacco/nicotine Alcohol intake: current Substance/Drug Use: never Adopted: No Caregiver/support person: No Lives independently: No Household members: spouse Marital status: Current occupational status: retired Current gender identity: Male Vitals/I&O/Wt Last Vital Signs Temp 98 F 07/09/23 08:00 Pulse 93 07/09/23 08:00 Resp 17 07/09/23 08:00 BP 99/66 07/09/23 09:17 Pulse Ox 93 07/09/23 08:00 O2 Del Method Room Air 07/09/23 04:47 O2 Flow Rate 3 07/08/23 17:40 FiO2 21 07/08/23 23:50 07/08/23 07/09/23 07/09/23 22:59 06:59 14:59 Intake Total 1250 / 1400 200 / 1600 Output Total 275 / 275 400 / 675 Balance 975 / 1125 -200 / 925 Weight last 48 hrs Weight 102.058 kg Weight 99.79 kg Physical Exam 2 Narrative: General exam is a conversive white male in no distress HEENT: Atraumatic and normocephalic. Neck is supple Cardiovascular heart sounds distant. Will placed on telemetry. Overall irregular. Lungs clear no wheezing or crackles Abdomen soft Extremities no sinus clubbing edema, left hip without significant hematoma Skin no rash Neuro no focal deficits Urinary Catheter Management: Fernandez: Cath Placed During This Visit: yes, but has since been removed by the nurse Reason for Continuing Indwelling Catheter: Required Immobilization for Trauma or Surgery or Anesthesia Urinary Catheter Date of Insertion: 07/08/23 Urinary Catheter Time of Insertion: 14:12 Date Urinary Catheter Removed: 07/09/23 Time Urinary Catheter Discontinued: 06:00 Data 07/09/23 05:26 07/09/23 05:26 A&P Assessment and plan (1) Hypotension: Patient with episode of hypotension this morning. He is receiving a fluid bolus currently. I think this will likely increase the patient's blood pressure sufficiently. Agree with holding his metoprolol at this point. Depending on heart rate may have to add back at least a small portion today. (2) Atrial fibrillation: Patient with history of atrial fibrillation. I believe he is likely on that currently. However, we will place him on telemetry to confirm overall rhythm. He has no chest discomfort or other symptoms to suggest anything more nefarious. He is on chronic anticoagulation, which has been resumed. (3) Primary osteoarthritis of left hip: Recently post-ORIF left hip, postoperative day #1 Plan Other medical problems as outlined in past medical history Thank you for this consultation Consult Attestations 2 Medical Necessity Statement: As per primary Coding Level of Care Code Acute Code for [facility] Diagnoses Hypotension I95.9 Atrial fibrillation I48.91 Primary osteoarthritis of left hip M16.12
[2023-07-09] MEDS: metoprolol tartrate 25 mg Tablet 12.5 MG PO (12:42)
[2023-07-09] MEDS: sodium chloride 0.9% 250 ML IV (12:42)
--- NOTE | 2023-07-09 13:56 | PM.DCS ---
Discharge Providers Date of Admission: 07/08/23 16:41 Date of Discharge: July 09, 2023 Attending Provider at Admission: Venus Santiago MD Attending Provider at Discharge: Venus Santiago MD Consults: Dr. Mitesh Vallejo, hospitalist Primary Care Provider: Jonh Garcia MD Diagnoses at Discharge Discharge Diagnosis (1) Hypotension: Status: Acute (2) Atrial fibrillation: Status: Acute (3) Primary osteoarthritis of left hip: Status: Acute (4) Status post total hip replacement, left: Status: Acute Permanent problem details: Date of procedure: July 08, 2023 Diagnosis: Severe degenerative osteoarthritis left hip Procedure done: Left total hip arthroplasty Implants: The Kerri total hip system with a size 58 mm by F alpha code Trident II Tritanium acetabular shell with an MDM liner size 46 mm inner diameter by F alpha code. A size 11 Accolade II 127? neck angle hip stem with a size 28 mm x +0 mm femoral head and a restorationist MDM X3 insert size 28 mm x 46F Reason for Visit Reason for Visit: M16.0 Brief History: This 82-year-old gentleman presented to the office with complaints of left hip pain which impacted his activities of daily living. He had difficulty using the muscles in his left leg as well as bending over and sleeping on his left side. He took Tylenol without relief. CT scan demonstrated a stable lesion in his inferior pubis. X-rays demonstrated end-stage degenerative osteoarthritis. After discussion in the office, questions were answered and consents were signed. The patient wished to proceed with left total hip arthroplasty. Hospital Course Hospital Course This gentleman was admitted to the hospital under observation status following same-day surgery for left total hip arthroplasty. He worked with physical therapy on the first postoperative day, and he was felt safe for discharge to home. Postoperatively, the patient did experience a hypotensive episode which responded to bolus, but the hospitalist team was consulted to evaluate for any other issue which might have resulted in his hypotension. After their evaluation and response to bolus, the patient was felt to be safe for discharge. Therefore, he was discharged to home with home physical therapy. He will follow-up with me as scheduled. Physical Exam Const: COMMON NORMALS: no acute distress, average body habitus, patient oriented x3 and alert GENERAL APPEARANCE: cooperative and comfortable ORIENTATION/CONSCIOUSNESS: Yes awake HENMT: COMMON NORMALS: normocephalic and atraumatic HEAD & SCALP: normocephalic and atraumatic Eye: GENERAL EYE: appearance normal, both eyes and all related structures Chest: COMMONS NORMALS: normal inspection of the chest Resp: COMMON NORMALS: normal respiratory effort EFFORT & INSPECTION: Yes able to speak in complete sentences and Yes symmetric chest movement Extremity: LEFT LOWER EXTREMITY: Yes hip joint (Dressing is dry and intact) Left hip: Yes inspection (Thigh is soft and nontender), Yes ROM (Not evaluated) and Yes neurovascular exam (Intact distally with no evidence of DVT) Neuro: COMMON NORMALS: patient oriented x3 SENSORIUM/ORIENTATION: Yes alert Psych: COMMON NORMALS: mental status grossly normal APPEARANCE: Yes grossly normal ATTITUDE: Yes calm and Yes engaged ATTENTION/CONCENTRATION: Yes attention grossly intact Skin: COMMON NORMALS: no rashes or lesions noted GENERAL SKIN EXAM: no rashes or lesions noted Urinary Catheter Management: Fernandez: Cath Placed During This Visit: yes, but has since been removed by the nurse Reason for Continuing Indwelling Catheter: Required Immobilization for Trauma or Surgery or Anesthesia Urinary Catheter Date of Insertion: 07/08/23 Urinary Catheter Time of Insertion: 14:12 Date Urinary Catheter Removed: 07/09/23 Time Urinary Catheter Discontinued: 06:00 Discharge Data Studies Completed and Pending Completed Studies During Hospitalization Category Date Time Status XR pelvis 1-2V* [id number] Routine Exams 07/08/23 16:37 Completed Pending at discharge Category Date Time Status Complete Blood Count w/Auto AM LABS Lab 07/10/23 04:00 Ordered Complete Blood Count w/Auto AM LABS Lab 07/11/23 04:00 Ordered Radiology Impressions Pelvis X-Ray 07/08/23 16:37 IMPRESSION: Expected postsurgical appearance status post left hip hemiarthroplasty. Laboratory Results WBC 8.43 10^3/uL (3.29-11.43) 07/09/23 05:26 RBC 4.33 10^6/uL (3.85-5.65) 07/09/23 05:26 Hgb 13.50 g/dL (11.27-16.99) 07/09/23 05:26 Hct 41.1 % (37-53) 07/09/23 05:26 MCV 94.9 fl (82-101) 07/09/23 05:26 MCH 31.2 pg (27-33) 07/09/23 05:26 MCHC 32.8 g/dL (30-55) 07/09/23 05:26 RDW 13.3 % (12.1-15.1) 07/09/23 05:26 Plt Count 168 10^3/cmm (157-399) 07/09/23 05:26 MPV 9.7 fL (7.4-10.4) 07/09/23 05:26 Neut % (Auto) 80.4 % 07/09/23 05:26 Lymph % (Auto) 8.1 % 07/09/23 05:26 [place] % (Auto) 9.0 % 07/09/23 05:26 Eos % (Auto) 1.7 % 07/09/23 05:26 Baso % (Auto) 0.2 % 07/09/23 05:26 Neut # (Auto) 6.78 10^3/uL (1.8-7.7) 07/09/23 05:26 Lymph # (Auto) 0.7 10^3/uL (0.8-4.8) L 07/09/23 05:26 [place] # (Auto) 0.8 10^3/uL (0.2-0.9) 07/09/23 05:26 Eos # (Auto) 0.1 10^3/uL (0.0-0.8) 07/09/23 05:26 Baso # (Auto) 0.0 10^3/uL (0.0-0.1) 07/09/23 05:26 Nucleated RBC % (auto) 0 % 07/09/23 05:26 Nucleated RBCs # 0.0 /100WBC 07/09/23 05:26 Sodium 139 mmol/L (136-145) 07/09/23 05:26 Potassium 4.8 mmol/L (3.5-5.1) 07/09/23 05:26 Chloride 105 mmol/L (98-107) 07/09/23 05:26 Carbon Dioxide 27 mmol/L (22-29) 07/09/23 05:26 Anion Gap 11.8 (5-19) 07/09/23 05:26 BUN 29 mg/dL (8-23) H 07/09/23 05:26 Creatinine 1.2 mg/dL (0.7-1.2) 07/09/23 05:26 GFR Calculation Not Reportable 07/09/23 05:26 Glucose 120 mg/dL (65-115) H 07/09/23 05:26 Calculated Osmolality 295 mOsm/kg (285-295) 07/09/23 05:26 Calcium 8.5 mg/dL (8.5-10.5) 07/09/23 05:26 Vitals Last Vital Signs Temp 98 F 07/09/23 08:00 Pulse 93 07/09/23 08:00 Resp 17 07/09/23 08:00 BP 102/64 07/09/23 09:46 Pulse Ox 93 07/09/23 08:00 O2 Del Method Room Air 07/09/23 04:47 O2 Flow Rate 3 07/08/23 17:40 FiO2 21 07/08/23 23:50 Discharge Plan Discharge Patient Disposition: Home Health Service Condition: Stable Prescriptions: New acetaminophen 500 mg Tablet 1,000 mg PO Q8H 15 Days Qty: 90 0RF celecoxib 200 mg Capsule 200 mg PO 1XD 30 Days Qty: 30 0RF tramadol 50 mg tablet 50 mg PO Q8H PRN (Reason: pain) 7 Days Qty: 60 0RF Continued tamsulosin 0.4 mg capsule 0.4 mg PO BID Qty: 180 3RF metoprolol succinate 50 mg tablet extended release 24 hr 50 mg PO DAILY dutasteride 0.5 mg capsule 0.5 mg PO DAILY Eliquis 5 mg tablet 5 mg PO BID lovastatin 40 mg tablet See Rx Instructions .ROUTE .COMPLEX Rx Instructions: TAKE 1 TABLET EVERY DAY FOR HIGH CHOLESTEROL Discharge Orders: Discharge Order (Routine); Ordered 07/09/23 Ordered By: Venus Santiago Other Ambulatory Orders: DME: Walker (Order) Location: None Selected Ordered By: Mitesh Vallejo Referrals: [facility] ([facility]) [Outside] Jonh Garcia MD [Primary Care Provider] - (We have notified your physician's clinic of the need for a follow-up appointment to be scheduled. If you have not heard from them within the next 2 business days, please call them directly. ) Venus Santiago MD [Physician] - 07/21/23 9:30 am Discharge Diet: Advance as tolerated and Usual diet Discharge Activity: Increase activity as tolerated, Limit activity as instructed, Use walker/crutches as instructed and As per PT/OT instructions Patient Instructions: Tramadol (By mouth) (Ultram, Ultram ER, [place], Theratramadol-60, Qdolo), Celecoxib (By mouth) (Jannyebreks, eliksib), Joint Replacement Surgery (DC), Total Hip Replacement (DC), Opioid Safety Activity Restrictions/Additional Instructions: Posterior hip precautions. Ice to left hip. Maintain current dressing until it comes off on its own. You may shower, but do not sit in standing water. Weightbearing as tolerated. Work on strengthening and ambulation with physical therapy. Discharge Attestations Time Spent in Discharge Care*: greater than 30 min Specific Discharge Activities: educating patient, documenting/other paperwork and evaluating patient/reviewing data Quality Metrics Clinical Quality Measures [ No reported AMI, CVA or VTE this stay] Coding Level of Care Code Acute Code for [facility] Diagnoses Hypotension I95.9 Atrial fibrillation I48.91 Primary osteoarthritis of left hip M16.12 Status post total hip replacement, left Z96.642
== END 2023-07-09 17:36 | disposition home health service (06) ==
LOC: MEDSURG 16:41
PROVIDERS: Nurse Practitioner; Admitting Provider Specialist; PCP Family Medicine; Visit Provider Specialist
PROC: (CPT 27130; principal; 2023-07-08 13:25)
DX: M16.12 Unilateral primary osteoarthritis, left hip (principal); M25.752 Osteophyte, left hip; G47.30 Sleep apnea, unspecified; I48.91 Unspecified atrial fibrillation; E78.5 Hyperlipidemia, unspecified; G47.33 Obstructive sleep apnea (adult) (pediatric); N40.1 Benign prostatic hyperplasia with lower urinary tract symptoms; N13.8 Other obstructive and reflux uropathy
CPT/HCPCS: 27130; 36415; 51702; 72170; 80048; 85025; 94660; 97110; 97116; 97161; 97166; 97530; C1713; C1776; G0378; J0131; J0690; J2250; J2405; J2704; J3370; J7030; J7040; J7050

== ENCOUNTER → 2023-07-21 09:18 | Outpatient (BNVA) | payer MEDICARE, SELFPAY | PROVIDERS: PCP Family Medicine; Visit Provider Specialist | DX: Z96.642 Presence of left artificial hip joint (principal) | CPT/HCPCS: 73502; 99024 ==

== ENCOUNTER → 2023-09-27 13:55 | Outpatient (BNVA) | payer MEDICARE, SELFPAY | PROVIDERS: PCP Family Medicine; Visit Provider Specialist | DX: Z96.642 Presence of left artificial hip joint (principal) | CPT/HCPCS: 73502; 99024 ==

== ENCOUNTER → 2023-12-15 12:53 | Outpatient (BNVA) | payer MEDICARE, SELFPAY | PROVIDERS: PCP Family Medicine; Visit Provider Specialist | DX: Z96.642 Presence of left artificial hip joint (principal); M16.12 Unilateral primary osteoarthritis, left hip | CPT/HCPCS: 73502; 99214 ==

== ENCOUNTER → 2024-08-23 08:13 | Outpatient (BNVA) | payer BC, SELFPAY | PROVIDERS: PCP Family Medicine; Visit Provider Specialist | DX: Z96.642 Presence of left artificial hip joint (principal) | CPT/HCPCS: 73502 ==